=== PATIENT | male | born 1995 | race Two or more races ===

== ENCOUNTER 2025-06-11 13:30 | Outpatient (RCR) | payer MEDICAID, SELFPAY ==
--- NOTE | 2025-05-19 14:20 | PT.OIERPT ---
PT OP Initial Eval Patient Information Outpatient Physical Therapy Treatment Date: 05/19/25 Visit Reasons: left shoulder surgery Medical Diagnosis: S43.005D Treatment Dx #1: L shoulder weakness Treatment Dx #2: Dec ROM L shoulder Start of Care: 05/19/25 Date of Onset: 04/16/25 Smoking Status Smoking Status: Never smoker Initial Assessment Subjective: Pt is 29 yr old male s/p L shoulder A/S [place] repair, superior labral repair on 04/16/25. Pt presents wearing abduction sling and reports low pain at rest and is doing home exercises given by 3x a day. PMH: hypothyroidism Pt goal: to move and use the L shoulder Objective: PROM: FF: 90 deg Abd: 70 deg ER: 15 deg AROM: FF: 90 deg ABd and ER NT Strength: NT but estimated to be 3-/5 in all planes Incision scars: no signs of infection Assessment: Pt presentation consistent with referring Dx with decreased ROM, strength and function with reaching. Pt has moderate/high tissue irritability with PROM today and requires skilled therapy in order to decrease pain and improve ROM and strength and has good rehab potential. Eval followed by HEP. Short Term and Group Home Goals 1. Ind with HEP 2. Improved PROM of L shoulder to at least 145 deg FF and abduction, ER to 90 deg in supine 3. Pt will reach OH x10 in order to reach tall cabinets.? Treatment Plan Follow protocol ?1. Manual therapy ? 2. Therex ? 3. Modalities as indicated, moist heat, ice, estim Frequency and Duration: 2x a week for 24 visits plus the evaluation Certification Dates: 05/19/25 to 08/17/25 Procedure Charges OP PT Eval Mod Complex 30 minutes: Yes
--- NOTE | 2025-05-21 14:22 | PT.ODAYNRPT ---
PT Outpatient Daily Note OP Daily Note Outpatient Physical Therapy Treatment Date: 05/21/25 Visit Reasons: left shoulder surgery Subjective: Same as time of evaluation Objective: See F/S for therex MT: PROM into FF, abd and ER x7' Assessment: Tightness limits PROM into all planes of motion with some pain. Plan: Improve ROM of L shoulder Length of Time (minutes) of Treatment: 30 Minutes Procedure Charges Therapeutic Exercise 30 minutes: Yes
--- NOTE | 2025-05-28 13:44 | PT.ODAYNRPT ---
PT Outpatient Daily Note OP Daily Note Outpatient Physical Therapy Treatment Date: 05/28/25 Visit Reasons: left shoulder surgery Subjective: Pt reports L shoulder is stiff and sore, continues to wear sling all day. Pt brought in a copy of post op protocol. Objective: Please see flow sheet for ther ex list. Assessment: Pt educated on pendulums exercise, pt instructed on performing AAROM avoiding active ROM with L UE pt able to replicate with good technique after a few attempts. Pt is highly guarded during PROM resulting in painful and limited range. Plan: Continue with POC. Length of Time (minutes) of Treatment: 30 Minutes Procedure Charges Therapeutic Exercise 30 minutes: Yes
--- NOTE | 2025-05-30 14:09 | PT.ODAYNRPT ---
PT Outpatient Daily Note OP Daily Note Outpatient Physical Therapy Treatment Date: 05/30/25 Visit Reasons: left shoulder surgery Subjective: Pt reports shoulder is doing ok, continues to wear arm sling. Pt expressed his fear of dislocating his L shoulder during AAROM and PROM activities, shared that is why he is so guarded during PROm. Objective: Please see flow sheet for ther ex list. Assessment: Pt guarded during PROM, cues for breathing technique for relaxation allowing for a little more range. Plan: Continue with poC. Length of Time (minutes) of Treatment: 30 Minutes Procedure Charges Therapeutic Exercise 30 minutes: Yes
--- NOTE | 2025-06-02 15:02 | PT.ODAYNRPT ---
PT Outpatient Daily Note OP Daily Note Outpatient Physical Therapy Treatment Date: 06/02/25 Visit Reasons: left shoulder surgery Subjective: Pt reports L shoulder is doing ok, has been doing wand exercises at home. Objective: Please see flow sheet for ther ex list. Assessment: Progressing interventions per post op protocol. Decrease guarding during PROM allowing for incrase range. Plan: Continue withpOC. Length of Time (minutes) of Treatment: 30 Minutes Procedure Charges Therapeutic Exercise 30 minutes: Yes
--- NOTE | 2025-06-06 15:21 | PT.ODAYNRPT ---
PT Outpatient Daily Note OP Daily Note Outpatient Physical Therapy Treatment Date: 06/06/25 Visit Reasons: left shoulder surgery Subjective: Pt reports L shoulder is feeling better, continues to do AAROM HEP. Objective: Please see flow sheet for ther ex list. Assessment: Decrease guarding during PROM allowing for increase ROM. Plan: Continue with poC. Length of Time (minutes) of Treatment: 30 Minutes Procedure Charges Therapeutic Exercise 30 minutes: Yes
--- NOTE | 2025-06-11 13:52 | PT.ODAYNRPT ---
PT Outpatient Daily Note OP Daily Note Outpatient Physical Therapy Treatment Date: 06/11/25 Visit Reasons: left shoulder surgery Subjective: Pt reports shoulder is moving better. Objective: Please see flow sheet for ther ex list. Assessment: Progressing interventions per post op protocol. Plan: Continue with poC. Length of Time (minutes) of Treatment: 30 Minutes Procedure Charges Therapeutic Exercise 30 minutes: Yes
== END 2025-06-15 23:59 | disposition home or self-care (01) ==
LOC: CPTX 13:30
PROVIDERS: PCP Physician Assistant; Referring Provider Orthopaedic Surgery; Visit Provider Orthopaedic Surgery
DX: M25.512 Pain in left shoulder (principal); R53.1 Weakness; S43.005D Unspecified dislocation of left shoulder joint, subsequent encounter; X58.XXXD Exposure to other specified factors, subsequent encounter
CPT/HCPCS: 97110; 97162

== ENCOUNTER 2025-06-17 13:29 | Outpatient (RCR) | payer MEDICAID, SELFPAY ==
--- NOTE | 2025-06-18 08:22 | PT.ODS1RPT ---
PT OP Progress/Discharge Note Date of Service: 06/17/25 Progress Note/DC Note Progress Note/Discharge Note: Progress Note Patient Information Visit Reasons: left shoulder surgery Service Continue Service or Discharge: Continue Service Status Subjective: Pt reports stiffness of L shoulder with HEP Objective: L shoulder PROM: FF: 135 deg Abd: 120 deg ER: 75 deg Strength: NT Assessment: Pt has attended the eval and 7 Rx sessions with steady improvement with PROM. He would benefit from continued therapy to improve PROM, transition to AROM and meet goals. He will need more authorized visits from insurance to continue with therapy. Plan: Request additional authorized visits x12 Procedure Charges Therapeutic Exercise 30 minutes: Yes
== END 2025-07-16 23:59 | disposition home or self-care (01) ==
LOC: CPTX 13:29
PROVIDERS: PCP Orthopaedic Surgery; Referring Provider Orthopaedic Surgery; Visit Provider Orthopaedic Surgery
DX: R53.1 Weakness (principal); S43.005D Unspecified dislocation of left shoulder joint, subsequent encounter; X58.XXXD Exposure to other specified factors, subsequent encounter
CPT/HCPCS: 97110